=== PATIENT | female | born 1960 | race Hispanic/Latino ===

== ENCOUNTER 2021-04-29 17:54 | Inpatient (IN) | payer OTHER ==
[~2021-04-29] VITALS: Ht 160 cm; Wt 93.9 kg
[2021-04-29] MEDS ORDERED: METOPROLOL TARTRATE INJ 1 MG/ML VIAL IV STA (18:17)
[2021-04-29] MEDS ORDERED: DIGOXIN INJ 0.25 MG/ML 2 ML AMP IV STA (18:17)
[2021-04-29] MEDS ORDERED: DILTIAZEM HCL 5 MG/ML 5 ML VIAL IV STA (18:17)
[2021-04-29] MEDS ORDERED: DIGOXIN INJ 0.25 MG/ML 2 ML AMP ONE (18:44)
[2021-04-29] MEDS ORDERED: DILTIAZEM HCL VIAL 5 ML ONE (18:45)
[2021-04-29] MEDS ORDERED: METOPROLOL TARTRATE INJ 1 MG/ML VIAL ONE (18:45)
[2021-04-29] MEDS ORDERED: ASPIRIN 81 MG CHEW TAB PO ONE (19:30)
[2021-04-29] MEDS ORDERED: ONDANSETRON HCL INJ 2MG/ML 2ML 2 MG/ML VIAL IV PRN (19:30)
[2021-04-29] MEDS ORDERED: MORPHINE SULFATE INJ 4 MG/ML INJ 1ML IV PRN (19:30)
[2021-04-29] MEDS: SODIUM CHLORIDE 0.9% 1000ML 1,000 ML IV SCH (20:55)
[2021-04-29] MEDS ORDERED: SODIUM CHLORIDE 0.9% 1000ML 1,000 ML ONE (21:00)
[2021-04-29] MEDS ORDERED: ASPIRIN 81 MG CHEW TAB ONE (21:00)
[2021-04-29 22:45] VITALS: BP 154/78
[2021-04-30] VITALS (7 sets, daily range): BP systolic 123–178; BP diastolic 77–94
[2021-04-30] MEDS ORDERED: METOPROLOL SUCC50 MG PO (00:37)
[2021-04-30] MEDS ORDERED: TRIAMTERENE-HCTZ1 EA PO (00:37)
[2021-04-30] MEDS ORDERED: GLIPIZIDE5 MG PO (00:37)
[2021-04-30] MEDS ORDERED: CRESTOR10 MG PO (00:37)
[2021-04-30] MEDS ORDERED: LISINOPRIL10 MG PO (00:37)
[2021-04-30] MEDS ORDERED: METFORMIN HCL500 MG PO (00:37)
[2021-04-30] MEDS: SODIUM CHLORIDE 0.9% 1000ML 1,000 ML IV SCH ×2 (04:06→12:01)
[2021-04-30 04:28] LABS: CREATINE KINASE MB 1.6 ng/mL (0-5.0)
[2021-04-30] MEDS ORDERED: METOPROLOL TARTRATE 50 MG TAB PO ONE (08:00)
[2021-04-30 08:50] LABS: BASOPHILS % 0.3 % (0.0-1.0); EOSINOPHILS # (AUTO) 0.1 (0.0-0.4); EOSINOPHILS % 1.6 % (0.0-6.0); HEMATOCRIT 39.4 % (34.2-44.1); HEMOGLOBIN 12.7 g/dL (12.0-16.0); LYMPHOCYTES # (AUTO) 1.8 (1.0-3.2); LYMPHOCYTES % 26.5 % (18.0-39.1); MEAN CORPUSCULAR HEMOGLOBIN 28.7 pg (28-32); MEAN CORPUSCULAR HGB CONC 32.2 g/dL (31-35); MEAN CORPUSCULAR VOLUME 89.1 fL (81-99); MONOCYTES # (AUTO) 0.6 (0.2-0.8); MONOCYTES % 8.1 % (4.4-11.3); NEUTROPHILS # (AUTO) 4.4 (2.1-6.9); NEUTROPHILS % 63.1 % (38.7-80.0); PLATELET COUNT 132 x10e3/uL (140-360); RED BLOOD COUNT 4.42 x10e6/uL (3.6-5.1); RED CELL DISTRIBUTION WIDTH 13.9 % (11.7-14.4)
[2021-04-30 09:36] LABS: ALBUMIN 3.6 g/dL (3.5-5.0); ALBUMIN/GLOBULIN RATIO 1.1 (0.8-2.0); ANION GAP 12.9 mmol/L (8-16); CALCIUM 8.4 mg/dL (8.4-10.2); CREATININE, SERUM 0.64 mg/dL (0.57-1.11); POTASSIUM 3.9 mmol/L (3.5-5.1)
[2021-04-30 09:42] LABS: CREATINE KINASE MB 1.4 ng/mL (0-5.0)
[2021-04-30] MEDS ORDERED: DEXTROSE 50% SYRINGE 50 ML IV PRN (10:15)
[2021-04-30] MEDS ORDERED: LISINOPRIL 20 MG TAB PO NR (10:15)
[2021-04-30] MEDS ORDERED: LISINOPRIL 10 MG TAB PO PRN (10:15)
[2021-04-30 10:20] LABS: ANION GAP 13.9 mmol/L (8-16); CALCIUM 8.5 mg/dL (8.4-10.2); CREATININE, SERUM 0.66 mg/dL (0.57-1.11); MAGNESIUM 1.7 MG/DL (1.3-2.1); POTASSIUM 3.9 mmol/L (3.5-5.1)
[2021-04-30] MEDS: ENOXAPARIN SOD INJ 60 MG/0.6 ML SYR SC SCH ×2 (12:20→20:30)
[2021-04-30] MEDS: INSULIN LISPRO 100 UNIT/1 ML 3ML VIAL SQ SCH ×3 (12:23→20:24)
[2021-04-30 13:30] LABS: THYROID STIMULATING HORMONE 3.806 uIU/mL (0.350-4.940)
[2021-04-30] MEDS: APIXABAN 5 MG TABLET PO SCH (16:50)
[2021-04-30] MEDS: METOPROLOL TARTRATE 50 MG TAB PO SCH (20:29)
[2021-04-30] MEDS: SIMVASTATIN 40 MG TAB PO SCH (20:30)
[2021-05-01] VITALS (9 sets, daily range): BP systolic 140–189; BP diastolic 70–92
[2021-05-01] MEDS: SODIUM CHLORIDE 0.9% 1000ML 1,000 ML IV SCH (05:01)
[2021-05-01 06:46] LABS: CREATINE KINASE MB 1.9 ng/mL (0-5.0)
[2021-05-01] MEDS: INSULIN LISPRO 100 UNIT/1 ML 3ML VIAL SQ SCH ×4 (08:45→21:00)
[2021-05-01] MEDS: ENOXAPARIN SOD INJ 60 MG/0.6 ML SYR SC SCH (08:45)
[2021-05-01] MEDS: APIXABAN 5 MG TABLET PO SCH ×2 (08:45→15:44)
[2021-05-01] MEDS: METOPROLOL TARTRATE 50 MG TAB PO SCH ×2 (08:46→21:02)
[2021-05-01] MEDS ORDERED: LISINOPRIL 20 MG TAB PO SCH (09:00)
[2021-05-01] MEDS ORDERED: HYDRALAZINE HCL 20 MG/ML VIAL IV PRN (09:45)
[2021-05-01] MEDS ORDERED: NIFEDIPINE CR 30 MG TAB PO ONE (11:15)
[2021-05-01] MEDS: SIMVASTATIN 40 MG TAB PO SCH (21:02)
[2021-05-02] VITALS: BP 160/75
[2021-05-02 04:00] VITALS: BP 154/80
[2021-05-02] MEDS ORDERED: NIFEDIPINE CR 30 MG TAB PO SCH (06:00)
[2021-05-02 07:48] VITALS: BP 143/65
[2021-05-02] MEDS: METOPROLOL TARTRATE 50 MG TAB PO SCH (08:44)
[2021-05-02] MEDS: APIXABAN 5 MG TABLET PO SCH (08:44)
[2021-05-02] MEDS: INSULIN LISPRO 100 UNIT/1 ML 3ML VIAL SQ SCH (08:45)
[2021-05-02] MEDS ORDERED: LISINOPRIL 20 MG TAB PO SCH (09:00)
[2021-05-02 11:18] VITALS: BP 148/82
== END 2021-05-02 12:40 | disposition home or self-care (01) | DRG 310 ==
LOC: FSED 18:07 → ERHOLD 19:24 → MED/SURG3 23:04 → OBSVTOIN 04-30 10:08
PROVIDERS: ADMIT Internal Medicine; ATTEND Internal Medicine
DX: I48.0 Paroxysmal atrial fibrillation (principal); I16.0 Hypertensive urgency; E11.9 Type 2 diabetes mellitus without complications; I10 Essential (primary) hypertension; E87.8 Other disorders of electrolyte and fluid balance, not elsewhere classified; Z20.822 Contact with and (suspected) exposure to COVID-19
CPT/HCPCS: 36415; 71045; 80048; 80053; 82550; 82553; 82948; 83735; 84443; 84484; 85025; 93005; 93306; 99284; G0378; J1160; J1650; J7030; U0002

== ENCOUNTER → 2021-08-21 | Outpatient (CLI) | payer OTHER ==
[~2021-08-21] MED LIST: CRESTOR10 MG PO; GLIPIZIDE5 MG PO; IOPAMIDOL 370 MG/ML 200 ML INFUS..BTL INJ ONE; LISINOPRIL10 MG PO; METFORMIN HCL500 MG PO; METOPROLOL SUCC50 MG PO; SODIUM CHLORIDE 0.9% 100 ML ONE; TRIAMTERENE-HCTZ1 EA PO
[2021-08-21 09:33] LABS: CREATININE, SERUM 0.8 mg/dL (0.57-1.11)
== END ==
LOC: CT 08:55
PROVIDERS: ATTEND Internal Medicine Interventional Cardiology
DX: R07.9 Chest pain, unspecified (principal); I48.91 Unspecified atrial fibrillation; I25.10 Atherosclerotic heart disease of native coronary artery without angina pectoris; I28.8 Other diseases of pulmonary vessels
CPT/HCPCS: 36415; 71275; 82565; 84520; J7050; Q9967